=== PATIENT | male | born 1995 | race Asian ===

== ENCOUNTER 2023-02-11 08:48 | Outpatient (CLI) | payer OTHER, MEDICAID, SELFPAY | END 2023-02-11 08:49 | disposition home or self-care (01) | PROVIDERS: PCP Family Medicine; Visit Provider Family Medicine | DX: F90.9 Attention-deficit hyperactivity disorder, unspecified type (principal); L70.0 Acne vulgaris; Z13.6 Encounter for screening for cardiovascular disorders; Z79.899 Other long term (current) drug therapy | CPT/HCPCS: 80053; 80061; 80306 ==